=== PATIENT | male | born 1935 | race Caucasian/White ===

== ENCOUNTER 2017-06-17 06:43 | Emergency (ER) | payer MEDICARE ==
[~2017-06-17 06:43] MED LIST: AMARYL 2MG TABLE2 MG PO; ASPIRIN81 MG PO; CATAPRES 0.1MG0.1 MG PO; FLOMAX 0.4 MG0.4 MG PO; HYTRIN CAP 5 MG5 MG PO; IBUPROFEN600 MG PO; IMDUR ER TAB 3030 MG PO; LIPITOR TAB 2020 MG PO; LOPRESSOR50 MG PO; PLAVIX 75 MG TA75 MG PO; TRANDOLAPRIL4 MG PO; ZANTAC150 MG PO
[2017-06-17 08:09] LABS: HEMOGLOBIN 13.4 gm/dl (14.0-17.5); RED BLOOD COUNT 4.08 M/UL (4.20-5.50); WHITE BLOOD COUNT 11.8 K/UL (4.5-11.0)
[2017-06-17 08:16] LABS: BUN/CREATININE RATIO 22 (0-10)
== END 2017-06-17 09:10 | disposition home or self-care (01) ==
LOC: ER1 06:43
PROVIDERS: Nurse Practitioner Family
DX: N99.89 Other postprocedural complications and disorders of genitourinary system (principal); R33.9 Retention of urine, unspecified; I10 Essential (primary) hypertension; Z98.890 Other specified postprocedural states; Y83.6 Removal of other organ (partial) (total) as the cause of abnormal reaction of the patient, or of later complication, without mention of misadventure at the time of the procedure
CPT/HCPCS: 51702; 80053; 81001; 85025; 87086; 99283

== ENCOUNTER 2017-06-21 20:25 | Emergency (ER) | payer MEDICARE ==
[2017-06-22 01:12] LABS: HEMOGLOBIN 13.5 gm/dl (14.0-17.5); RED BLOOD COUNT 4.19 M/UL (4.20-5.50); WHITE BLOOD COUNT 11.3 K/UL (4.5-11.0)
[2017-06-22 01:28] LABS: BUN/CREATININE RATIO 26 (0-10)
== END 2017-06-22 04:32 | disposition home or self-care (01) ==
LOC: ER1 20:25
PROVIDERS: Physician Assistant
DX: M96.1 Postlaminectomy syndrome, not elsewhere classified (principal); N39.0 Urinary tract infection, site not specified; I25.810 Atherosclerosis of coronary artery bypass graft(s) without angina pectoris; E11.9 Type 2 diabetes mellitus without complications; I10 Essential (primary) hypertension; E78.5 Hyperlipidemia, unspecified; Z79.02 Long term (current) use of antithrombotics/antiplatelets; Z79.82 Long term (current) use of aspirin; Z95.1 Presence of aortocoronary bypass graft; Z95.5 Presence of coronary angioplasty implant and graft; Z98.1 Arthrodesis status; Y83.8 Other surgical procedures as the cause of abnormal reaction of the patient, or of later complication, without mention of misadventure at the time of the procedure
CPT/HCPCS: 36415; 71010; 72128; 72131; 80053; 81001; 85025; 87040; 87077; 87086; 87186; 96361; 96365; 99285; J0696; J7030